=== PATIENT | female | born 1970 | race Caucasian/White ===

== ENCOUNTER 2023-05-29 16:49 | Emergency (ER) | payer OTHER ==
[~2023-05-29] VITALS: Ht 157.5 cm; Wt 72.6 kg
[2023-05-29 17:13] VITALS: BP 129/69; PULSE 89; RESP 18; TEMP 98; O2SAT 98
[2023-05-29] MEDS ORDERED: IBUP-2213 PO (20:21)
== END 2023-05-29 20:45 | disposition home or self-care (01) ==
LOC: MED 16:49
DX: S02.2XXA Fracture of nasal bones, initial encounter for closed fracture (principal); R03.0 Elevated blood-pressure reading, without diagnosis of hypertension; Z79.1 Long term (current) use of non-steroidal anti-inflammatories (NSAID); W22.8XXA Striking against or struck by other objects, initial encounter; Y92.89 Other specified places as the place of occurrence of the external cause; Y93.89 Activity, other specified; Y99.8 Other external cause status
CPT/HCPCS: 70160; 99283